=== PATIENT | female | born 1955 | race African-American/Black ===

== ENCOUNTER 2016-08-19 09:10 | Inpatient (IN) | payer OTHER ==
[~2016-08-19] VITALS: Ht 170.2 cm; Wt 119.3 kg
[2016-08-21] MEDS ORDERED: VENTAER INH (08:18)
[2016-08-21] MEDS ORDERED: TIOT12.9 INH (08:18)
[2016-08-21] MEDS ORDERED: OMEP40CA2 PO (08:18)
[2016-08-21] MEDS ORDERED: SPIR50TA PO (08:18)
[2016-08-28] VITALS (8 sets, daily range): BP systolic 129–155; BP diastolic 77–85; PULSE 68–82; RESP 16–18; TEMP 97.3–98.8; O2SAT 94–100
[2016-08-28] MEDS ORDERED: CHLORHEXIDINE GLUCONATE 2 % 1 PACK (2 CLOTHS) TOPICAL PRN (11:30)
[2016-08-28] MEDS ORDERED: ceFAZolin 1,000 MG/NS 100 ML IV SCH ×2 (11:30)
[2016-08-28] MEDS ORDERED: METOPROLOL TARTRATE 25 MG TAB PO PRN (11:30)
[2016-08-28] MEDS ORDERED: INSULIN HUMAN REGULAR 1,000 UNITS/10 ML VIAL SQ PRN (11:30)
[2016-08-28] MEDS ORDERED: LACTATED RINGER'S 1000 ML IV PRN (11:30)
[2016-08-28] MEDS ORDERED: ALVIMOPAN 12 MG CAPSULE - On Call PO SCH (11:30)
[2016-08-28] MEDS ORDERED: METRONIDAZOLE 500 MG/100 ML ISONTONIC SOLN IV SCH (11:30)
[2016-08-28] MEDS ORDERED: SODIUM CHLORID 0.9% 500 ML IV PRN (11:30)
[2016-08-28] MEDS ORDERED: DEXT 5%-NACL 0.9% 1000 ML INJ 1,000 ML IV SCH (11:30)
[2016-08-28] MEDS ORDERED: ONDANSETRON HCL 4 MG/2 ML VIAL IV PUSH ONE (12:00)
[2016-08-28] MEDS ORDERED: LACTATED RINGER'S 1000 ML INJ 2,000 ML IV ONE (12:00)
[2016-08-28] MEDS ORDERED: PROPOFOL 200 MG/20 ML AMP IV ONE (12:00)
--- NOTE | 2016-08-28 12:35 | PD.HP.UP ---
H&P Update Note The Pre-Admit History and Physical Examination regarding the above named patient was reviewed (including, but not limited to, vital signs, heart, lungs, co-morbid conditions), and upon re-examination it is noted that: the patient's condition has not significantly changed since the last examination. Brain Middleton MD Aug 28, 2016 12:34
[2016-08-28] MEDS ORDERED: fentaNYL CITRATE 250 MCG/5 ML AMP ONE ×2 (12:54→14:55)
[2016-08-28] MEDS ORDERED: ACETAMINOPHEN 1000 MG/100 ML VIAL IV ONE (12:59)
[2016-08-28] MEDS ORDERED: FAMOTIDINE 20 MG/2 ML VIAL ONE (13:00)
[2016-08-28] MEDS ORDERED: MIDAZOLAM HCL 2 MG/2 ML VIAL ONE (13:00)
[2016-08-28] MEDS ORDERED: DEXAMETHASONE SOD PHOS 4 MG/ML VIAL ONE (13:00)
[2016-08-28] MEDS ORDERED: ceFAZolin INJ 1,000 MG VIAL IV ONE (13:25)
[2016-08-28] MEDS ORDERED: SUGAMMADEX SODIUM 200 MG/2 ML VIAL IV PUSH ONE ×2 (14:21)
[2016-08-28] MEDS ORDERED: BENZOCAINE 6 MG/MENTHOL 10 MG LOZENGE BUCCAL PRN (15:00)
[2016-08-28] MEDS ORDERED: NALOXONE HCL 0.4 MG/ML AMP IV PRN (15:00)
[2016-08-28] MEDS ORDERED: ONDANSETRON HCL 4 MG/2 ML VIAL IV PRN (15:00)
[2016-08-28] MEDS ORDERED: SODIUM CHLORIDE 0.9% FLUSH 10 ML FLUSH IV FLUSH PRN (15:00)
[2016-08-28] MEDS ORDERED: KETOROLAC TROMETHAMINE 30 MG/ML (IVP) VIAL IVP PRN (15:00)
[2016-08-28] MEDS ORDERED: POTASSIUM CHLOR 20 MEQ PREMIX 100 ML IV PRN (15:00)
[2016-08-28] MEDS ORDERED: POTASSIUM CHLOR 40 MEQ PREMIX 100 ML IV PRN (15:00)
[2016-08-28] MEDS ORDERED: ALBUTEROL SULFATE 90 MCG/ACT HFA 18 GM INHALER INH PRN (15:00)
[2016-08-28] MEDS ORDERED: ENALAPRILAT 1.25 MG/ML VIAL IV PRN (15:00)
[2016-08-28] MEDS ORDERED: ACETAMINOPHEN/HYDROcodone 325 MG/5 MG TAB PO PRN (15:00)
[2016-08-28] MEDS: PCA - TOTAL MG MORPHINE DELIVERED PER SHIFT SCH ×2 (15:00→21:06)
[2016-08-28] MEDS ORDERED: ZOLPIDEM TARTRATE 5 MG TAB PO PRN (15:00)
[2016-08-28] MEDS ORDERED: Post-op Orders (for Pharmacy) MISC XX ONE (15:00)
[2016-08-28] MEDS ORDERED: *morphine SULFATE 8 MG/ML PERIprocedure ONLY ONE ×2 (15:02→15:15)
[2016-08-28] MEDS ORDERED: *RESP: ALBUTEROL 2.5 MG/3 ML NEB (PRN) PERIprocedural Use ONLY NEB ONE (15:05)
[2016-08-28 15:39] LABS: AUTOMATED NEUTROPHIL # 10.3 TH/MM3 (1.8-7.7); BASOPHIL % 0.3 % (0.0-2.0); EOSINOPHIL % 0.2 % (0.0-4.0); HEMATOCRIT 37.4 % (35.0-46.0); HEMO FLAGS DIFF FINAL; LYMPH % 14.8 % (9.0-44.0); LYMPHOCYTE # 1.8 TH/MM3 (1.0-4.8); MEAN CELL VOLUME 91.3 FL (80.0-100.0); MEAN CORPUSCULAR HEMOGLOBIN 27.8 PG (27.0-34.0); MEAN CORPUSCULAR HGB CONC 30.4 % (32.0-36.0); MONO % 2.6 % (0.0-8.0); NEUT % 82.1 % (16.0-70.0); PLATELET COUNT 143 TH/MM3 (150-450); RED CELL DISTRIBUTION WIDTH 14.3 % (11.6-17.2); WHITE BLOOD COUNT 12.5 TH/MM3 (4.0-11.0)
[2016-08-28] MEDS: D5-LR + KCL 20 MEQ INJ 1,000 ML IV SCH ×2 (16:00→20:21)
[2016-08-28 16:13] LABS: BICARBONATE 26.4 MEQ/L (21.0-32.0); POTASSIUM 4.3 MEQ/L (3.5-5.1)
[2016-08-28] MEDS ORDERED: DO NOT ADM ANY ANTICOAGULANT DRUGS PRN (16:30)
[2016-08-28] MEDS: MORPHINE SULFATE 30 MG/30 ML PCA IV SCH (16:30)
[2016-08-28] MEDS: METOCLOPRAMIDE HCL 10 MG/2 ML VIAL IVS SCH (17:44)
[2016-08-28] MEDS: ceFAZolin 2 GM PREMIX 50 ML IV SCH (19:40)
[2016-08-28] MEDS: metroNIDAZOLE 500 MG INJ 100 ML IV SCH (20:22)
[2016-08-28] MEDS: SODIUM CHLORIDE 0.9% FLUSH 10 ML FLUSH IV FLUSH SCH (21:00)
[2016-08-28] MEDS: FUROSEMIDE 20 MG/2 ML VIAL IV SCH (21:05)
--- NOTE | 2016-08-28 23:03 | MP ---
cc: MD JONES TOLLAND, JOHN T. MD SCHUTT-AINE, REGINALD DATE OF SURGERY 08/28/2016 PREOPERATIVE DIAGNOSIS Polyp cecum. POSTOPERATIVE DIAGNOSIS Polyp cecum. PROCEDURE Ascending colectomy. ANESTHESIA General endotracheal. SURGEON Dr. Middleton PROFESSOR OF SOCIOLOGY Dr. Fountain ESTIMATED BLOOD LOSS 25 cc. OPERATING TIME 1 hour. OPERATIVE FINDINGS This patient was referred to [facility] by Dr. Diego Reyes and Dr. Jones for a 3-4 cm flat sessile polyp in the cecum. For this reason ascending colectomy was recommended. Exploration of the abdominal cavity at surgery revealed that the liver was palpably normal, the gallbladder was surgically absent, the stomach was palpably normal as was the colon and the small bowel. The patient had a previous hysterectomy as well. A full ascending colectomy was done with an ileotransverse colon anastomosis. OPERATIVE TECHNIQUE The patient was placed on the table in the supine position. After adequate general endotracheal anesthesia, transverse right upper quadrant supraumbilical incision was made and carried down through the subcutaneous tissue and the rectus muscle on the right side and the peritoneal cavity was entered with the above-mentioned findings. The cecum and ascending colon was mobilized up along its peritoneal reflection and then the lesser sac was entered over the transverse colon and the hepatic flexure and transverse colon was also mobilized. The right branch of the middle colic vessels were clamped, cut and ligated with 0 Vicryl ligature and the marginal vessel was clamped, cut and ligated and the midportion of the transverse colon was divided with an Ethicon STEPHON 55 stapling device. Next, my attention was turned to the terminal ileum and the terminal ileum was divided between Celina clamps and the ileocolic vessels were doubly clamped, cut and doubly ligated at their origin and then the right colic vessel was clamped, cut and ligated and the specimen was removed from the table, opened ensuring that the polyp was present in the cecum. Once this was accomplished the anastomosis was done with an Ethicon STEPHON 55 stapling device along the antimesenteric border of the terminal ileum and the transverse colon and the anastomosis was created with the Ethicon 55 stapling device. The colotomy was then closed with a TX60 blue staple height stapler and then the opening in the mesentery was approximated with running 3-0 Vicryl simple running suture. The abdominal cavity was irrigated thoroughly with saline solution, aspirated dry. Hemostasis was maintained throughout with electrocautery and ligature. The bowels were replaced in the abdominal cavity in an advertising project manager manner and the left side of the omentum was laid over the small bowel. The abdominal cavity was then closed in layers using a double-stranded 1 PDS for the posterior rectus sheath and then that layer was irrigated with a liter of saline solution, aspirated dry and then the anterior rectus sheath was closed with double-stranded 1 PDS as well. Subcutaneous tissue which was quite thick was irrigated thoroughly with a liter of saline solution as well and then dried as well. Skin was closed with running 3-0 Vicryl, subcuticular sutures and dressing was applied. Sponge, needle and instrument counts were reported as correct. Estimated blood loss was about 25 cc. Operating time was 1 hour. The patient tolerated the procedure well and left the operating room in good condition. MD KOBY Lowery/MORGAN /3:04 PM /10:52 PM
[2016-08-29] VITALS (20 sets, daily range): BP systolic 118–149; BP diastolic 63–73; PULSE 62–77; RESP 16–18; TEMP 97.6–99; O2SAT 94–100
[2016-08-29] MEDS: METOCLOPRAMIDE HCL 10 MG/2 ML VIAL IVS SCH ×4 (00:15→17:17)
[2016-08-29] MEDS: D5-LR + KCL 20 MEQ INJ 1,000 ML IV SCH (01:50)
[2016-08-29] MEDS: ceFAZolin 2 GM PREMIX 50 ML IV SCH ×2 (04:11→11:15)
[2016-08-29] MEDS: metroNIDAZOLE 500 MG INJ 100 ML IV SCH ×2 (04:11→11:15)
[2016-08-29 05:13] LABS: AUTOMATED NEUTROPHIL # 11.1 TH/MM3 (1.8-7.7); BASOPHIL % 0.2 % (0.0-2.0); HEMATOCRIT 36.5 % (35.0-46.0); HEMO FLAGS DIFF FINAL; LYMPH % 5.9 % (9.0-44.0); LYMPHOCYTE # 0.7 TH/MM3 (1.0-4.8); MEAN CELL VOLUME 89.1 FL (80.0-100.0); MEAN CORPUSCULAR HEMOGLOBIN 28.3 PG (27.0-34.0); MEAN CORPUSCULAR HGB CONC 31.7 % (32.0-36.0); MONO % 5.9 % (0.0-8.0); PLATELET COUNT 142 TH/MM3 (150-450); RED CELL DISTRIBUTION WIDTH 14.1 % (11.6-17.2); WHITE BLOOD COUNT 12.6 TH/MM3 (4.0-11.0)
[2016-08-29 05:29] LABS: BICARBONATE 30.5 MEQ/L (21.0-32.0)
[2016-08-29] MEDS: PCA - TOTAL MG MORPHINE DELIVERED PER SHIFT SCH ×3 (06:00→21:31)
[2016-08-29] MEDS: PANTOPRAZOLE SODIUM 40 MG VIAL IVP SCH (08:14)
[2016-08-29] MEDS: SODIUM CHLORIDE 0.9% FLUSH 10 ML FLUSH IV FLUSH SCH ×2 (08:15→20:07)
[2016-08-29] MEDS: ALVIMOPAN 12 MG CAPSULE - Post-op dosing PO SCH ×2 (08:15→20:17)
[2016-08-29] MEDS: SPIRONOLACTONE 50 MG TAB PO SCH (08:15)
[2016-08-29] MEDS: FUROSEMIDE 20 MG/2 ML VIAL IV SCH ×2 (08:15→20:18)
[2016-08-29] MEDS ORDERED: PT:SPIRIVA RESPIMAT INH SCH (09:00)
[2016-08-29] MEDS ORDERED: NON-FORMULARY DRUG (Tiotropium Inh (Spiriva Respimat Inh) 2 PUFF) INH SCH (09:00)
[2016-08-29] MEDS: DEXTROSE 5%-LACTATED RING INJ 1,000 ML IV SCH (16:45)
--- NOTE | 2016-08-29 16:46 | HHI.PR ---
Subjective Remarks Up in chair. No N or V. Objective Vital Signs Date Time Temp Pulse Resp B/P Pulse Ox O2 Delivery O2 Flow Rate FiO2 08/29/16 16:00 98.3 65 16 124/70 98 08/29/16 16:00 64 08/29/16 15:00 62 08/29/16 14:00 64 08/29/16 13:45 20 08/29/16 13:00 66 08/29/16 12:00 97.9 66 16 119/73 97 08/29/16 12:00 66 08/29/16 11:00 70 08/29/16 10:00 62 08/29/16 09:00 62 08/29/16 08:00 74 08/29/16 08:00 97.6 63 16 118/64 100 08/29/16 07:00 70 08/29/16 06:00 64 08/29/16 05:00 64 08/29/16 04:00 72 08/29/16 03:00 75 08/29/16 03:00 98.0 73 16 141/71 100 08/29/16 02:00 74 08/29/16 01:00 74 08/29/16 00:00 75 08/28/16 23:00 74 08/28/16 23:00 97.6 74 16 141/82 100 08/28/16 22:00 82 08/28/16 21:06 16 08/28/16 21:00 76 08/28/16 20:00 97.3 73 16 147/85 99 08/28/16 20:00 78 08/28/16 19:00 80 08/28/16 18:14 16 08/28/16 18:00 70 08/28/16 17:45 70 08/28/16 17:45 98.8 68 16 155/79 100 08/28/16 17:20 75 16 148/70 99 Nasal Cannula 2 08/28/16 17:00 75 16 151/69 99 Nasal Cannula 2 08/28/16 16:45 71 16 157/74 98 Nasal Cannula 2 I/O 08/28/16 08/28/16 08/28/16 08/29/16 08/29/16 08/29/16 07:00 15:00 23:00 07:00 15:00 23:00 Intake Total 1100 ml 400 ml 2823 ml Output Total 250 ml 250 ml 1200 ml Balance 850 ml 150 ml 1623 ml Intake Oral 60 ml IV Total 400 ml 2763 ml Other 1100 ml Output Urine Total 225 ml 250 ml 1200 ml Estimated Blood Loss 25 ml # Bowel Movements 0 Result Diagram: 08/29/1643308/29/16433 Objective Remarks VS-S Abd:soft,nontender I&Os and Labs: OK Assessment and Plan Assessment and Plan Stable POD#1 Transfer to 7 N Decrease IVs Brain Middleton MD Aug 29, 2016 16:46
[2016-08-29] MEDS ORDERED: ALVIMOPAN 12 MG CAPSULE PO SCH (21:00)
[2016-08-29] MEDS: MORPHINE SULFATE 30 MG/30 ML PCA IV SCH (21:25)
[2016-08-30] VITALS: BP 138/62; PULSE 76; RESP 18; TEMP 99.3; O2SAT 94
[2016-08-30] MEDS: METOCLOPRAMIDE HCL 10 MG/2 ML VIAL IVS SCH ×4 (00:23→18:02)
[2016-08-30] MEDS: DEXTROSE 5%-LACTATED RING INJ 1,000 ML IV SCH (02:45)
[2016-08-30 04:00] VITALS: BP 131/68; PULSE 80; RESP 18; TEMP 99.2; O2SAT 95
[2016-08-30 05:39] LABS: AUTOMATED NEUTROPHIL # 8.3 TH/MM3 (1.8-7.7); BASOPHIL % 0.2 % (0.0-2.0); EOSINOPHIL # 0.2 TH/MM3 (0-0.4); EOSINOPHIL % 1.5 % (0.0-4.0); HEMATOCRIT 31.4 % (35.0-46.0); HEMO FLAGS DIFF FINAL; LYMPH % 11.9 % (9.0-44.0); LYMPHOCYTE # 1.2 TH/MM3 (1.0-4.8); MEAN CORPUSCULAR HEMOGLOBIN 29.1 PG (27.0-34.0); MEAN CORPUSCULAR HGB CONC 32.8 % (32.0-36.0); NEUT % 81.4 % (16.0-70.0); PLATELET COUNT 147 TH/MM3 (150-450); RED BLOOD COUNT 3.53 MIL/MM3 (4.00-5.30); WHITE BLOOD COUNT 10.2 TH/MM3 (4.0-11.0)
[2016-08-30] MEDS: PCA - TOTAL MG MORPHINE DELIVERED PER SHIFT SCH (06:00)
[2016-08-30 06:32] LABS: BICARBONATE 33.6 MEQ/L (21.0-32.0); POTASSIUM 3.9 MEQ/L (3.5-5.1)
[2016-08-30 08:00] VITALS: BP 121/64; PULSE 77; RESP 16; TEMP 99.6; O2SAT 94
[2016-08-30] MEDS: SPIRONOLACTONE 50 MG TAB PO SCH (09:51)
[2016-08-30] MEDS: ALVIMOPAN 12 MG CAPSULE - Post-op dosing PO SCH ×2 (09:51→20:05)
[2016-08-30] MEDS: FUROSEMIDE 20 MG/2 ML VIAL IV SCH ×2 (09:51→20:06)
[2016-08-30] MEDS: PANTOPRAZOLE SODIUM 40 MG VIAL IVP SCH (09:51)
--- NOTE | 2016-08-30 10:10 | HHI.PR ---
Subjective Remarks No N or V. No BMs. No c/o pain. Objective Vital Signs Date Time Temp Pulse Resp B/P Pulse Ox O2 Delivery O2 Flow Rate FiO2 08/30/16 08:00 99.6 77 16 121/64 94 08/30/16 06:00 18 08/30/16 04:00 99.2 80 18 131/68 95 08/30/16 00:00 99.3 76 18 138/62 94 08/29/16 21:31 18 08/29/16 21:25 18 08/29/16 20:00 99.0 77 18 149/63 94 08/29/16 18:00 68 08/29/16 17:00 66 08/29/16 16:00 98.3 65 16 124/70 98 08/29/16 16:00 64 08/29/16 15:00 62 08/29/16 14:00 64 08/29/16 13:45 20 08/29/16 13:00 66 08/29/16 12:00 97.9 66 16 119/73 97 08/29/16 12:00 66 08/29/16 11:00 70 I/O 08/29/16 08/29/16 08/29/16 08/30/16 08/30/16 08/30/16 07:00 15:00 23:00 07:00 15:00 23:00 Intake Total 2823 ml 3462 ml 120 ml Output Total 1200 ml 3000 ml 425 ml Balance 1623 ml 462 ml -305 ml Intake Oral 60 ml 1790 ml 120 ml IV Total 2763 ml 1672 ml Output Urine Total 1200 ml 3000 ml 425 ml # Bowel Movements 0 0 Result Diagram: 08/30/16 0457 08/30/16 0457 Objective Remarks VS-S Abd:soft,nontender,wound clean, dressing removed by me. I&Os and Labs: OK Assessment and Plan Assessment and Plan Stable POD#2 Decrease IVs,ambulate increase diet. Brain Middleton MD Aug 30, 2016 10:10
[2016-08-30 12:00] VITALS: BP 132/74; PULSE 81; RESP 20; TEMP 98.9; O2SAT 94
[2016-08-30] MEDS: SODIUM CHLORIDE 0.9% FLUSH 10 ML FLUSH IV FLUSH SCH ×2 (14:52→20:05)
[2016-08-30 16:00] VITALS: BP 152/82; PULSE 93; RESP 16; TEMP 99.7; O2SAT 94
[2016-08-30] MEDS: ACETAMINOPHEN/HYDROcodone 325 MG/5 MG TAB PO PRN (18:02)
[2016-08-30 20:00] VITALS: BP 112/59; PULSE 81; RESP 18; TEMP 98.8; O2SAT 93
[2016-08-31] VITALS: BP 139/71; PULSE 80; RESP 18; TEMP 98.9; O2SAT 95
[2016-08-31] MEDS: METOCLOPRAMIDE HCL 10 MG/2 ML VIAL IVS SCH ×4 (00:03→17:29)
[2016-08-31] MEDS: ACETAMINOPHEN/HYDROcodone 325 MG/5 MG TAB PO PRN ×4 (00:05→17:30)
[2016-08-31] MEDS: DEXTROSE 5%-LACTATED RING INJ 1,000 ML IV SCH ×2 (07:30→23:16)
[2016-08-31 08:00] VITALS: BP 128/72; PULSE 71; RESP 17; TEMP 97; O2SAT 95
[2016-08-31] MEDS: ALVIMOPAN 12 MG CAPSULE - Post-op dosing PO SCH ×2 (09:21→19:41)
[2016-08-31] MEDS: SODIUM CHLORIDE 0.9% FLUSH 10 ML FLUSH IV FLUSH SCH ×2 (09:21→19:39)
[2016-08-31] MEDS: FUROSEMIDE 20 MG/2 ML VIAL IV SCH (09:21)
[2016-08-31] MEDS: PANTOPRAZOLE SODIUM 40 MG VIAL IVP SCH (09:21)
[2016-08-31] MEDS: SPIRONOLACTONE 50 MG TAB PO SCH (09:21)
[2016-08-31 12:00] VITALS: BP 126/79; PULSE 71; RESP 17; TEMP 96.8; O2SAT 94
[2016-08-31 16:00] VITALS: BP_SYST 117; BP_SYST 123; BP_DIAS 64; BP_DIAS 66; PULSE 67; PULSE 72; RESP 17; TEMP 97.2; TEMP 97.4; O2SAT 96; O2SAT 98
[2016-08-31 20:00] VITALS: BP 132/74; PULSE 75; RESP 18; TEMP 98.5; O2SAT 95
[2016-09-01] VITALS: BP 119/61; PULSE 81; RESP 18; TEMP 98.5; O2SAT 93
[2016-09-01] MEDS: METOCLOPRAMIDE HCL 10 MG/2 ML VIAL IVS SCH ×3 (00:49→11:52)
[2016-09-01 08:00] VITALS: BP 123/76; PULSE 66; RESP 16; TEMP 97.7; O2SAT 96
[2016-09-01] MEDS: ALVIMOPAN 12 MG CAPSULE - Post-op dosing PO SCH (08:32)
[2016-09-01] MEDS: SODIUM CHLORIDE 0.9% FLUSH 10 ML FLUSH IV FLUSH SCH (08:32)
[2016-09-01] MEDS: PANTOPRAZOLE SODIUM 40 MG VIAL IVP SCH (08:32)
[2016-09-01] MEDS: SPIRONOLACTONE 50 MG TAB PO SCH (08:32)
--- NOTE | 2016-09-01 09:40 | HHI.DCPOC ---
Discharge Care Plan Diagnosis: (1) Adenoma of ascending colon (2) Ascending colon resection Your Health Problems Are: Incision/Drains Appetite Changes Irregular Bowel Function Exercise Tolerance Goals to Promote Your Health * To prevent worsening of your condition and complications * To maintain your health at the optimal level Directions to Meet Your Goals Take your medications as prescribed Follow your dietary instruction Follow activity as directed Keep your appointments as scheduled Take your immunizations and boosters as scheduled If your symptoms worsen call your PCP, if no PCP go to Urgent Care Center or Emergency Room Smoking is Dangerous to Your Health. Avoid second hand smoke Call the 24-hour hour crisis hotline for domestic abuse at Brain Middleton MD Sep 01, 2016 09:40
== END 2016-09-01 12:37 | disposition home or self-care (01) | DRG 330 ==
LOC: EDBD → HSDI 08-28 10:53 → EDUNIT# 08-28 13:30 → HCIN 08-28 17:28 → N07A 08-29 18:30
PROVIDERS: ADMIT Colon & Rectal Surgery; ATTEND Colon & Rectal Surgery
PROC: 0DTF0ZZ Resection of Right Large Intestine, Open Approach (ICD-10-PCS; principal; 2016-08-28 13:02)
DX: D12.0 Benign neoplasm of cecum (principal); Z68.41 Body mass index [BMI] 40.0-44.9, adult; J44.9 Chronic obstructive pulmonary disease, unspecified; E66.9 Obesity, unspecified; Z87.891 Personal history of nicotine dependence
CPT/HCPCS: 80048; 85025; 86850; 86900; 86901; 88307; 88309; 94150; 94664; C9113; J0131; J0690; J1100; J1885; J1940; J2250; J2270; J2405; J2765; J3010; J3480; J7120; J7121; J7613

== ENCOUNTER → 2016-08-21 | Outpatient (CLI) | payer OTHER ==
[~2016-08-21] MED LIST: OMEP40CA2 PO; SPIR50TA PO; TIOT12.9 INH; VENTAER INH
[2016-08-21 08:31] LABS: APTT (PATIENT) 27.9 SEC (24.3-30.1); INTERNATIONAL NORMALIZED RATIO 0.9 RATIO; PROTHROMBIN TIME - PATIENT 10.2 SEC (9.8-11.6)
[2016-08-21 08:35] LABS: BACTERIA, URINE OCC /hpf; BLOOD, URINE NEG (NEG); GLUCOSE,URINE NEG (NEG); KETONE, URINE NEG (NEG); MUCUS URINE FEW /lpf (OCC); NITRITE,URINE NEG (NEG); PH, URINE 5.5 (5.0-8.5); SQUAMOUS EPITHELIAL CELL URINE 3 /hpf (0-5); TRANSITIONAL EPI CELLS, URINE <1 /hpf; URINE COLOR YELLOW (YELLW/STRAW)
[2016-08-21 08:41] LABS: COMMENT (UR) CULTURE INDICATED; CULTURE IF INDICATED CULTURE INDICATED
[2016-08-21 08:42] LABS: AUTOMATED NEUTROPHIL # 2.2 TH/MM3 (1.8-7.7); BASOPHIL % 0.7 % (0.0-2.0); EOSINOPHIL # 0.1 TH/MM3 (0-0.4); EOSINOPHIL % 2.5 % (0.0-4.0); HEMATOCRIT 37.1 % (35.0-46.0); HEMO FLAGS DIFF FINAL; LYMPH % 40.9 % (9.0-44.0); MEAN CELL VOLUME 89.4 FL (80.0-100.0); MEAN CORPUSCULAR HGB CONC 31.3 % (32.0-36.0); MONO % 10.5 % (0.0-8.0); NEUT % 45.4 % (16.0-70.0); PLATELET COUNT 159 TH/MM3 (150-450); RED BLOOD COUNT 4.15 MIL/MM3 (4.00-5.30); RED CELL DISTRIBUTION WIDTH 14.1 % (11.6-17.2); WHITE BLOOD COUNT 4.8 TH/MM3 (4.0-11.0)
[2016-08-21 08:50] LABS: ANION GAP 4 MEQ/L (5-15); AST (GOT) 15 U/L (15-37); BICARBONATE 30.6 MEQ/L (21.0-32.0); BLOOD UREA NITROGEN 14 MG/DL (7-18); CHLORIDE 105 MEQ/L (98-107); GLOMERULAR FILTRATION RATE 55 ML/MIN (>89); GLUCOSE,FASTING 101 MG/DL (74-99); POTASSIUM 4.3 MEQ/L (3.5-5.1); SODIUM (NA) 140 MEQ/L (136-145)
[2016-08-21 08:55] LABS: ALKALINE PHOSPHATASE 79 U/L (45-117); ALT (GPT) 17 U/L (10-53); TOTAL BILIRUBIN ADULT 0.3 MG/DL (0.2-1.0)
--- NOTE | 2016-08-21 09:24 | RADRPT ---
EXAM DATE/TIME: 08/21/2016 08:51 [place] COMPARISON: No previous studies available for comparison. INDICATIONS : Evaluate for pneumonia, pneumothorax, or communicable disease. Pre op for ascending colectomy surger y. MEDICAL HISTORY : Chronic obstructive pulmonary disease. SURGICAL HISTORY : None. ENCOUNTER: Initial ACUITY: 1 day PAIN SCORE: 0/10 LOCATION: Bilateral chest FINDINGS: There is hazy opacity at the left cardiophrenic angle which may relate to epicardial fat. We have no comparison exams. There is nothing to otherwise suggest infiltrate or mass. No effusion is present. C ardiac contours are otherwise satisfactory. Thoracic skeleton is intact. CONCLUSION: Probable epicardial fat producing cardiophrenic angle density on the left. Brain Jones MD on August 21, 2016 at 9:21 Board Certified Radiologist. This report was verified electronically.
--- NOTE | 2016-08-21 15:35 | EKG ---
Date Performed: 08/21/2016 Time Performed: 08:12:20 PTAGE: 61 years EKG: Sinus rhythm NORMAL ECG NO PREVIOUS TRACING DOCTOR: Bird Cope Interpretating Date/Time 08/21/2016 15:33:57
== END ==
LOC: CPRE 07:41
PROVIDERS: ATTEND Colon & Rectal Surgery
DX: Z01.812 Encounter for preprocedural laboratory examination (principal); Z01.810 Encounter for preprocedural cardiovascular examination; Z01.811 Encounter for preprocedural respiratory examination; D12.0 Benign neoplasm of cecum; R82.99 Other abnormal findings in urine
CPT/HCPCS: 36415; 71020; 80053; 81001; 82378; 85025; 85610; 85730; 87086; 93005